=== PATIENT | male | born 2000 | race African-American/Black ===

== ENCOUNTER 2020-12-27 15:59 | Emergency (ER) | payer BC ==
[~2020-12-27] VITALS: Ht 175.3 cm; Wt 74.7 kg
[2020-12-27 16:13] VITALS: BP 126/78
[2020-12-27 17:05] LABS: MICROSCOPIC NOT IND
--- NOTE | 2020-12-27 17:09 | NUR ---
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
--- NOTE | 2020-12-27 17:37 | NUR ---
patient to room from [facility]. patient states blood in urine earlier today and notes b/l lower back pain. has had back pain before. no medical history iv started with blood work off IV start. ED MD at bedside
--- NOTE | 2020-12-27 17:48 | NUR ---
BS REPORT FROM DONALDO, ASSUME CARE OF PT AT THIS TIME. AWAITING DC PAPERWORK. CALL LIGHT WITHIN REACH.
--- NOTE | 2020-12-27 18:07 | NUR ---
DC INSTRUCTIONS REVIEWED
== END 2020-12-27 18:10 | disposition home or self-care (01) ==
LOC: ED 18:00
DX: R31.0 Gross hematuria (principal); M54.5 Low back pain
CPT/HCPCS: 81003; 99283